=== PATIENT | female | born 1975 | race Caucasian/White ===

== ENCOUNTER 2020-10-12 19:52 | Emergency (ER) | payer OTHER, SELFPAY ==
--- NOTE | ~2020-10-12 | XR_ITS ---
XR lumbar spine 2-3V 10/12/2020 20:47 Indication: Low back pain Procedure: 3 views of the lumbar spine Comparison: No prior studies for comparison. Findings: There is disc narrowing at L4-5. There is grade 2 spondylolisthesis at L4-5 secondary to sp ondylolysis. No acute fracture or traumatic malalignment. Sacrum is unremarkable. Impression: 1: 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 There is associated mild disc narrow ing at this level. Reviewed, dictated and finalized at location A. [facility]ARMER Impression: 1: 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 There is assoc iated mild disc narrowing at this level.
[2020-10-12 19:56] VITALS: BP 164/98; PULSE 72; RESP 19; TEMP 36.4; O2SAT 100
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
--- NOTE | 2020-10-12 20:40 | PC.NURSE ---
patient in radiology
[2020-10-12] MEDS: KETOROLAC (*BKC) 60 MG/2 ML VIAL IM (20:49)
[2020-10-12] MEDS: diazePAM INJ (*CRX) 10 MG/2 ML SYRINGE 5 MG IM (20:49)
--- NOTE | 2020-10-12 21:14 | PC.NURSE ---
resting on stretcher. feels better after medications. planning to discharge patient in 20-30 minutes.
[2020-10-12 21:38] VITALS: BP 142/78; PULSE 72; RESP 16; O2SAT 98
== END 2020-10-12 21:40 | disposition home or self-care (01) ==
PROVIDERS: Emergency Provider Emergency Medicine
DX: S39.012A Strain of muscle, fascia and tendon of lower back, initial encounter (principal); E28.2 Polycystic ovarian syndrome; M43.06 Spondylolysis, lumbar region; V49.40XA Driver injured in collision with unspecified motor vehicles in traffic accident, initial encounter
CPT/HCPCS: 72100; 96372; 99284; J1885; J3360